=== PATIENT | female | born 2000 | race Caucasian/White ===

== ENCOUNTER 2020-03-01 13:52 | Emergency (ER) | payer MEDICAID, SELFPAY ==
[2020-03-01 13:58] VITALS: BP 131/78; PULSE 117; RESP 16; TEMP 36.4; O2SAT 99; BMI 25.4
--- NOTE | 2020-03-01 14:23 | ED_ITS ---
HPI - Female Genitourinary General: Chief complaint: Vaginal Bleeding Stated complaint: LOWER AB PAIN, VAGINAL BLEEDING Time Seen by Provider: 03/01/20 14:03 History of Present Illness: HPI Narrative: Patient is a well-appearing, tearful 20-year-old female seen for vaginal bleeding, passing vaginal clots, and abdominal pain which started this morning. She states that she has normal menstrual cycles, and that today's bleed was roughly 1 week early, and she does not remember missing a period. She complains of 7 of 10 pain in the suprapubic region which is worse with motion and palpation and better with rest. She also complains of epigastric and right upper quadrant tenderness which she states came on at the same time. She has never been before and has not taken a test. She relates a history of acute kidney injury requiring hosp italization 4 years ago. She has not had any specialty follow-up since that time but states she has had clear urine output. She denies fever, dysuria, chest pain, shortness of breath associated with her symptoms. Date of Last Menstrual Period: 02/04/20 Review of Systems General: Reports: 10 or more systems reviewed and unremarkable except in HPI and below [facility] ED Female Reproductive History: Date of last menstrual period: 02/04/20 Physical Exam Const: COMMON NORMALS: no acute distress, patient oriented x3 and alert HENMT: COMMON NORMALS: normocephalic and atraumatic HEAD & SCALP: no rmocephalic and atraumatic Eye: COMMON NORMALS: Equal, round and reactive pupils present, EOMs intact bilaterally and no scleral icterus PUPIL: Yes Equal, round and reactive pupils present Resp: COMMON NORMALS: normal respiratory effort and No retractions Cardio: COMMON NORMALS: regular rate, regular rhythm and No murmurs present (Cardio) RATE: regular rate RHYTHM: regular rhythm GI: COMMON NORMALS: Normal to inspection, nondistended, normoactive bowel sounds present and Soft to palpation; negative for non-tender PALPATION: Yes Soft to palpation and Yes Tenderness to palpation present (GI) Details: RUQ and other (Most tender in the suprapubic region and the bilateral adnexal region as well as mild tenderness to palpation of the epigastrium and right upper quadrant.) Neuro: COMMON NORMALS: patient oriented x3 SENSORIUM/ORIENTATION: Yes alert Skin: COMMON NORMALS: no rashes or lesions noted GENERAL SKIN EXAM: no rashes or lesions noted Course Vital Signs: Vital signs: Vital Signs Temperature 97.5 F L 03/01/20 13:58 Pulse Rate 104 H 03/01/20 17:05 Respiratory Rate 14 03/01/20 15:29 Blood Pressure 103/62 03/01/20 17:05 Pulse Oximetry 98 03/01/20 17:05 MDM - Female MDM Narrative: Medical decision making narrative: Patient remained hemodynamically stable throughout ED course. CBC, CMP, lipase, UA, hCG are all unremarkable. Vital signs are stable. Abdomen is soft and nonperitoneal. I suspect abnormal uterine bleeding versus ovarian cyst rupture. I offered her ultrasound, but cautioned her that it likely would not change her course. She will be discharged in stable and improved condition with instructions to use ibuprofen for pain and follow-up to primary care. She states that she has a primary care physician with whom she was to follow-up in [facility]. She knows she is welcome back in the emergency department should her symptoms get worse before outpatient follow-up. She was also offered follow-up to SOCIAL SERVICE TECHNICIAN, but she declined at this time. Lab Data: Labs: Lab Results 03/01/20 03/01/20 03/01/20 Range/Units 14:25 14:25 15:02 WBC 11.6 H (4.0-10.0) 10^3/ uL RBC 4.74 (4.1-5.3) 10^6/u L Hgb 13.2 (11.5-15.3) g/dL Hct 41.3 (37.0-47.0) % MCV 87.1 (81-99) fL MCH 27.8 L (28.0-34.0) pg MCHC 32.0 (30.0-36.0) g/dL RDW 12.9 (12.1-15.1) % Plt Count 336 (130-400) 10^3/c mm MPV 8.8 (7.4-10.4) fL Neut % (Auto) 77.7 % Lymph % (Auto) 15.7 % [place] % (Auto) 5.1 % Eos % (Auto) 0.8 % Baso % (Auto) 0.4 % Neut # (Auto) 9.02 H (1.8-7.7) 10^3/u L Lymph # (Auto) 1.8 (0.8-4.8) 10^3/u L [place] # (Auto) 0.6 (0.2-0.9) 10^3/u L Eos # (Auto) 0.1 (0.0-0.8) 10^3/u L Baso # (Auto) 0.1 (0.0-0.1) 10^3/u L Nucleated RBC % (a uto) 0 % Nucleated RBCs # 0.0 /100WBC Sodium (136-145) mmol/L Potassium (3.5-5.1) mmol/L Chloride (98-107) mmol/L Carbon Dioxide (22-29) mmol/L Anion Gap (5-19) BUN (6-20) mg/dL Creatinine (0.5-0.9) mg/dL GFR Calculation (90-130) mL/min Glucose (65-115) mg/dL Calculated Osmolal ity (285-295) mOsm/k g Calcium (8.5-10.5) mg/dL Total Bilirubin (0.15-1.2) mg/dL AST (0-32) U/L ALT (0-33) U/L Alkaline Phosphata se (35-105) IU/L Total Protein (6.6-8.7) g/dL Albumin (3.5-5.2) g/dL Globulin (1.3-4.6) g/dL Lipase (13-60) U/L HCG, Qual Negative (Negative) Urine Color Straw (Yellow) Urine Appearance Clear (CLEAR) Urine pH 7.0 (5-7) Ur Specific Gravit y 1.000 L (1.005-1.030) Urine Protein Neg (Negative) Urine Glucose (UA) Norm (Normal) Urine Ketones Negative (Negative) Urine Blood 2+ H (Negative) Urine Nitrate Negative (Negative) Urine Bilirubin Neg (Negative) Urine Urobilinogen Norm (Negative) mg/dL Ur Leukocyte Nancy ase Negative (Negative) Urine RBC 0-4 H (0-2) /hpf Urine WBC 0-4 H (0-5) /hpf Ur Squamous Epith Cells 0-4 H (0-5) /hpf Amorphous Sediment Not Reportable Urine Bacteria 1+ H (NONE) /hpf 03/01/20 Range/Units 15:02 WBC (4.0-10.0) 10^3/ uL RBC (4.1-5.3) 10^6/u L Hgb (11.5-15.3) g/dL Hct (37.0-47.0) % MCV (81-99) fL MCH (28.0-34.0) pg MCHC (30.0-36.0) g/dL RDW (12.1-15.1) % Plt Count (130-400) 10^3/c mm MPV (7.4-10.4) fL Neut % (Auto) % Lymph % (Auto) % [place] % (Auto) % Eos % (Auto) % Baso % (Auto) % Neut # (Auto) (1.8-7.7) 10^3/u L Lymph # (Auto) (0.8-4.8) 10^3/u L [place] # (Auto) (0.2-0.9) 10^3/u L Eos # (Auto) (0.0-0.8) 10^3/u L Baso # (Auto) (0.0-0.1) 10^3/u L Nucleated RBC % (a uto) % Nucleated RBCs # /100WBC Sodium 140 (136-145) mmol/L Potassium 4.2 (3.5-5.1) mmol/L Chloride 104 (98-107) mmol/L Carbon Dioxide 29 (22-29) mmol/L Anion Gap 11.2 (5-19) BUN 11 (6-20) mg/dL Creatinine 0.6 (0.5-0.9) mg/dL GFR Calculation 126.2 (90-130) mL/min Glucose 103 (65-115) mg/dL Calculated Osmolal ity 290 (285-295) mOsm/k g Calcium 9.2 (8.5-10.5) mg/dL Total Bilirubin 0.3 (0.15-1.2) mg/dL AST 14 (0-32) U/L ALT 12 (0-33) U/L Alkaline Phosphata se 60 (35-105) IU/L Total Protein 6.3 L (6.6-8.7) g/dL Albumin 4.0 (3.5-5.2) g/dL Globulin 2.3 (1.3-4.6) g/dL Lipase 19 (13-60) U/L HCG, Qual (Negative) Urine Color (Yellow) Urine Appearance (CLEAR) Urine pH (5-7) Ur Specific Gravit y (1.005-1.030) Urine Protein (Negative) Urine Glucose (UA) (Normal) Urine Ketones (Negative) Urine Blood (Negative) Urine Nitrate (Negative) Urine Bilirubin (Negative) Urine Urobilinogen (Negative) mg/dL Ur Leukocyte Nancy ase (Negative) Urine RBC (0-2) /hpf Urine WBC (0-5) /hpf Ur Squamous Epith Cells (0-5) /hpf Amorphous Sediment Urine Bacteria (NONE) /hpf Discharge Plan Discharge Patient Disposition: Home Clinical Impression: Vaginal bleeding, Pelvic pain Condition: Stable Prescriptions: No Action Hair,Nails and Skin Vitamin Tablet 1 tab PO DAILY@0800 RF: 0 Vitamin B-12 1 tab PO DAILY@0800 RF: 0 Discharge Orders: Discharge ED (Routine); Ordered 03/01/20 Ordered By: Joni Recinos Discharge Diet: Usual diet Discharge Activity: Resume usual activity Activity Restrictions/Additional Instructions: CBC, CMP, lipase, urinalysis were all normal today. test shows that you are not and did not have a miscarriage today. I suspect you had an ovarian cyst rupture which caused your pain. Please follow-up with your primary care physician in no your was welcome back in the emergency department if your symptoms get worse before he can be seen in the clinic. Coding Level of Care Code ED Emergency Worker for Melissa Fwd Exam Detailed
[2020-03-01 14:35] LABS: Add Urine Microscopic? YES; Bilirubin Urine Neg (Negative); Blood Urine 2+ (Negative); Glucose Urine UA Norm (Normal); HCG Qualitative Urine. Negative (Negative); Ketones Urine Negative (Negative); Leukocyte Esterase Urine Negative (Negative); Nitrate Urine Negative (Negative); Protein Urine Neg (Negative); Urine Appearance Clear (CLEAR); Urine Color Straw (Yellow); Urobilinogen Urine Norm (Negative)
[2020-03-01 15:15] LABS: Basophils # 0.1 10^3/uL (0.0-0.1); Basophils % 0.4 %; Eosinophils # 0.1 10^3/uL (0.0-0.8); Eosinophils % 0.8 %; Hematocrit 41.3 % (37.0-47.0); Hemoglobin 13.2 g/dL (11.5-15.3); Lymphocytes # 1.8 10^3/uL (0.8-4.8); Lymphocytes % 15.7 %; Mean Corpuscular Hemoglobin 27.8 pg (28.0-34.0); Mean Corpuscular Volume 87.1 fL (81-99); Mean Platelet Volume 8.8 fL (7.4-10.4); Monocytes # 0.6 10^3/uL (0.2-0.9); Monocytes % 5.1 %; Neutrophils # 9.02 10^3/uL (1.8-7.7); Neutrophils % 77.7 %; Nucleated Red Blood Cells % 0 %; Platelet Count 336 10^3/cmm (130-400); Red Blood Count 4.74 10^6/uL (4.1-5.3); Red Cell Distribution Width 12.9 % (12.1-15.1); White Blood Count 11.6 10^3/uL (4.0-10.0)
[2020-03-01 15:16] LABS: Bacteria Urine 1+ /hpf; RBC Urine 0-4 /hpf (0-2); Squamous Epithelial Cell Urine 0-4 /hpf (0-5); WBC Urine 0-4 /hpf (0-5)
[2020-03-01 15:28] LABS: Alanine Aminotransferase 12 U/L (0-33); Alkaline Phosphatase 60 IU/L (35-105); Anion Gap 11.2 (5-19); Aspartate Amino Transferase 14 U/L (0-32); Blood Urea Nitrogen 11 mg/dL (6-20); Calcium 9.2 mg/dL (8.5-10.5); Carbon Dioxide 29 mmol/L (22-29); Chloride 104 mmol/L (98-107); Globulin 2.3 g/dL (1.3-4.6); Glomerular Filtration Rate 126.2 mL/min (90-130); Glucose 103 mg/dL (65-115); Lipase 19 U/L (13-60); Osmolality Calculated 290 mOsm/kg (285-295); Potassium 4.2 mmol/L (3.5-5.1); Sodium 140 mmol/L (136-145); Total Bilirubin 0.3 mg/dL (0.15-1.2); Total Protein 6.3 g/dL (6.6-8.7)
[2020-03-01 15:29] VITALS: BP 102/60; PULSE 87; RESP 14; O2SAT 97
[2020-03-01 17:05] VITALS: BP 103/62; PULSE 104; O2SAT 98
== END 2020-03-01 17:05 | disposition home or self-care (01) ==
PROVIDERS: Emergency Provider Student in an Organized Health Care Education/Training Program
DX: N93.9 Abnormal uterine and vaginal bleeding, unspecified (principal); R10.2 Pelvic and perineal pain
CPT/HCPCS: 12345; 80053; 81001; 81025; 83690; 85025; 99282

== ENCOUNTER → 2020-04-13 17:13 | Outpatient (BNVA) | payer OTHER, SELFPAY | PROVIDERS: Visit Provider Nurse Practitioner | DX: Z20.828 Contact with and (suspected) exposure to other viral communicable diseases (principal) | CPT/HCPCS: 87635 ==

== ENCOUNTER 2020-04-20 16:34 | Emergency (ER) | payer MEDICAID, SELFPAY ==
[2020-04-20 16:46] VITALS: BP 129/81; PULSE 82; RESP 16; TEMP 36.6; O2SAT 100; BMI 24.1
[2020-04-20 16:47] VITALS: BP 129/57; PULSE 61; RESP 16; O2SAT 99
--- NOTE | 2020-04-20 16:51 | W.ED.NAVMDI ---
HPI - Nausea/Vomiting/Diarrhea General: Chief complaint: Nausea/Vomiting/Diarrhea Stated complaint: , vomiting to point of bleeding Time Seen by Provider: 04/20/20 16:49 History of Present Illness: HPI Narrative: 20-year-old female comes in complaining of nausea vomiting off and on for the last week not able to keep any fluids down. Patient states she is although she is not sure how far along she is. She had a negative test here in mid February. She is on not certain how far along she is she has established with Dr. Amanda but if not done an ultrasound yet. She denies any vaginal bleeding she has very sore throat running quite a bit tiny specks of blood with vomitus recently. She has tried [employer] and B12 vitamin (they were sold out of B6) with no relief of symptoms. She denies any dysuria urgency or frequency vaginal bleeding or discharge. MD elicited complaint: nausea and vomiting Pertinent past history: other () Onset (ago): day(s) Description of vomiting: food contents and watery Associated nausea: Yes Associated abdominal pain: Yes (Related to repeated dry heaving) Location of pain: Diffuse Severity: mild Quality: cramping Exacerbating factors: none Relieving factors: none Associated symtoms: Reports fatigue, anorexia, malaise and nausea; Denies altered mental status, anxiety, bloating, change in vision, chest pain, cough, diaphoresis, decreased urine output, dizziness, dysuria, epistaxis, fecal incontinence, fevers/chills, headache(s), myalgias, numbness, palpitations, rash, short of breath, syncope, tenesmus, tinnitus or weakness Review of Systems Const: Reports: fatigue and malaise; Denies: diaphoresis Eyes: Denies: change in vision ENMT: Denies: tinnitus or epistaxis Card: Denies: chest pain, palpitations or syncope Resp: Denies: dyspnea, productive cough or non-productive cough GI: Reports: nausea; Denies: bloating or fecal incontinence : Denies: dysuria Skin/Breast: Denies: rash or pruritus Neuro: Denies: headache(s) or dizziness Psych: Denies: anxiety [facility] ED Female Reproductive History: Date of last menstrual period: 02/23/20 Physical Exam Const: COMMON NORMALS: no acute distress EXAM LIMITATIONS: no altered mental status GENERAL APPEARANCE: cooperative and comfortable ORIENTATION/CONSCIOUSNESS: Yes awake, Yes oriented to person, Yes oriented to place and Yes oriented to time HENMT: COMMON NORMALS: normocephalic, atraumatic, external ears normal, EAC's normal, TM's normal bilaterally and Normal nasal mucous membranes and turbinates present HEAD & SCALP: normocephalic and atraumatic NOSE: Normal nasal mucous membranes and turbinates present EXTERNAL EAR: Yes external ears normal EXTERNAL AUDITORY CANAL: EAC's normal TYMPANIC MEMBRANE: TM's normal bilaterally Eye: COMMON NORMALS: Equal, round and reactive pupils present, EOMs intact bilaterally, conjunctivae normal and no scleral icterus CONJUNCTIVA: Yes conjunctivae normal PUPIL: Yes Equal, round and reactive pupils present Neck/C-Spine: COMMON NORMALS: no JVD Resp: COMMON NORMALS: normal respiratory effort, No retractions, No use of accessory muscles and clear to auscultation bilaterally AUSCULTATION: clear to auscultation bilaterally Cardio: COMMON NORMALS: no JVD, regular rate, regular rhythm and No murmurs present (Cardio) RATE: regular rate RHYTHM: regular rhythm GI: COMMON NORMALS: Soft to palpation and No hepatosplenomegaly present AUSCULTATION: Yes normoactive bowel sounds PALPATION: Yes Soft to palpation, No Tenderness to palpation present (GI), No Guarding due to palpation present (GI) and Yes No hepatosplenomegaly present Extremity: COMMON NORMALS: normal to inspection, capillary refill normal, no clubbing, cyanosis or edema, no calf tenderness and no pedal edema Neuro: SENSORIUM/ORIENTATION: Yes oriented to person, Yes oriented to place and Yes oriented to time Skin: COMMON NORMALS: no rashes or lesions noted GENERAL SKIN EXAM: no rashes or lesions noted Course Vital Signs: Vital signs: Vital Signs Temperature 97.9 F 04/20/20 16:46 Pulse Rate 78 04/20/20 20:02 Respiratory Rate 18 04/20/20 20:02 Blood Pressure 125/65 04/20/20 20:02 Pulse Oximetry 96 04/20/20 20:02 MDM - Nausea/Vomiting/Diarrhea MDM Narrative: Medical decision making narrative: Patient feeling better after fluids and antiemetics. She has a mild bladder infection we will start her on Macrobid gave her both promethazine suppositories and tablets clear good diet next 24 hours if not improving follow-up with primary care if worsens return to the emergency room Lab Data: Labs: Lab Results 04/20/20 04/20/20 04/20/20 Range/Units 17:09 17:09 17:24 WBC 11.2 H (4.0-10.0) 10^3/ uL RBC 4.59 (4.1-5.3) 10^6/u L Hgb 12.9 (11.5-15.3) g/dL Hct 39.8 (37.0-47.0) % MCV 86.7 (81-99) fL MCH 28.1 (28.0-34.0) pg MCHC 32.4 (30.0-36.0) g/dL RDW 12.5 (12.1-15.1) % Plt Count 291 (130-400) 10^3/c mm MPV 8.9 (7.4-10.4) fL Neut % (Auto) 77.7 % Lymph % (Auto) 16.1 % [place] % (Auto) 5.2 % Eos % (Auto) 0.3 % Baso % (Auto) 0.4 % Neut # (Auto) 8.67 H (1.8-7.7) 10^3/u L Lymph # (Auto) 1.8 (0.8-4.8) 10^3/u L [place] # (Auto) 0.6 (0.2-0.9) 10^3/u L Eos # (Auto) 0.0 (0.0-0.8) 10^3/u L Baso # (Auto) 0.0 (0.0-0.1) 10^3/u L Nucleated RBC % (a uto) 0 % Nucleated RBCs # 0.0 /100WBC Sodium 136 (136-145) mmol/L Potassium 3.7 (3.5-5.1) mmol/L Chloride 100 (98-107) mmol/L Carbon Dioxide 25 (22-29) mmol/L Anion Gap 14.7 (5-19) BUN 8 (6-20) mg/dL Creatinine 0.5 (0.5-0.9) mg/dL GFR Calculation 155.7 H (90-130) mL/min Glucose 78 (65-115) mg/dL Calculated Osmolal ity 279 L (285-295) mOsm/k g Calcium 9.5 (8.5-10.5) mg/dL Magnesium 2.0 (1.7-2.3) mg/dL Total Bilirubin 0.4 (0.15-1.2) mg/dL AST 12 (0-32) U/L ALT 10 (0-33) U/L Alkaline Phosphata se 49 (35-105) IU/L Total Protein 6.7 (6.6-8.7) g/dL Albumin 4.3 (3.5-5.2) g/dL Globulin 2.4 (1.3-4.6) g/dL Lipase 12 L (13-60) U/L Urine Color Yellow (Yellow) Urine Appearance Sl hazy (CLEAR) Urine pH 7 (5-7) Ur Specific Gravit y 1.015 (1.005-1.030) Urine Protein Neg (Negative) Urine Glucose (UA) Norm (Normal) Urine Ketones 3+ H (Negative) Urine Blood 2+ H (Negative) Urine Nitrate Negative (Negative) Urine Bilirubin 1+ H (Negative) Urine Urobilinogen 1 H (Negative) mg/dL Ur Leukocyte Nancy ase Negative (Negative) Urine RBC 15-25 H (0-2) /hpf Urine WBC 0-4 H (0-5) /hpf Ur Squamous Epith Cells 0-4 H (0-5) /hpf Amorphous Sediment Not Reportable Urine Bacteria 2+ H (NONE) /hpf Urine Mucus 4+ /hpf Discharge Plan Discharge Patient Disposition: Home Clinical Impression: Hyperemesis gravidarum, Cystitis Condition: Stable Prescriptions: New promethazine 25 mg tablet 25 mg PO Q6H PRN (Reason: nausea and vomiting) Qty: 20 RF: 0 promethazine 12.5 mg suppository 12.5 mg [place] Q6H PRN (Reason: nausea and vomiting) Qty: 12 RF: 0 Macrobid 100 mg capsule 100 mg PO Q12H 7 Days Qty: 14 RF: 0 No Action Hair,Nails and Skin Vitamin Tablet 1 tab PO DAILY@0800 RF: 0 Vitamin B-12 1 tab PO DAILY@0800 RF: 0 Discharge Orders: Discharge ED (Routine); Ordered 04/20/20 Ordered By: Oswaldo Muniz Discharge Diet: Clear Liquid Discharge Activity: Increase activity as tolerated Activity Restrictions/Additional Instructions: Follow-up with your OB as needed return if has further problems. Take the p.o. promethazine if you have persistent nausea and vomiting if you cannot keep the p.o. promethazine down to use the suppositories. Coding Level of Care Code ED Surveyor Helper Rod for Melissa Fwd Exam Comprehensive
[2020-04-20 17:17] VITALS: BP 109/54; PULSE 71; RESP 15; O2SAT 97
[2020-04-20 17:20] LABS: Basophils % 0.4 %; Eosinophils % 0.3 %; Hematocrit 39.8 % (37.0-47.0); Hemoglobin 12.9 g/dL (11.5-15.3); Lymphocytes # 1.8 10^3/uL (0.8-4.8); Lymphocytes % 16.1 %; Mean Corpuscular HGB Conc 32.4 g/dL (30.0-36.0); Mean Corpuscular Hemoglobin 28.1 pg (28.0-34.0); Mean Corpuscular Volume 86.7 fL (81-99); Mean Platelet Volume 8.9 fL (7.4-10.4); Monocytes # 0.6 10^3/uL (0.2-0.9); Monocytes % 5.2 %; Neutrophils # 8.67 10^3/uL (1.8-7.7); Neutrophils % 77.7 %; Nucleated Red Blood Cells % 0 %; Platelet Count 291 10^3/cmm (130-400); Red Blood Count 4.59 10^6/uL (4.1-5.3); Red Cell Distribution Width 12.5 % (12.1-15.1); White Blood Count 11.2 10^3/uL (4.0-10.0)
[2020-04-20] MEDS: promethazine 25 mg/mL SDV 1 mL IM (17:28)
[2020-04-20] MEDS: sodium chloride 0.9% 1,000 ML 999 ML IV ×2 (17:28→18:30)
[2020-04-20 17:45] LABS: Alanine Aminotransferase 10 U/L (0-33); Albumin Level 4.3 g/dL (3.5-5.2); Alkaline Phosphatase 49 IU/L (35-105); Anion Gap 14.7 (5-19); Aspartate Amino Transferase 12 U/L (0-32); Blood Urea Nitrogen 8 mg/dL (6-20); Calcium 9.5 mg/dL (8.5-10.5); Carbon Dioxide 25 mmol/L (22-29); Chloride 100 mmol/L (98-107); Creatinine Clr Calc Pharmacy 170.0118; Globulin 2.4 g/dL (1.3-4.6); Glomerular Filtration Rate 155.7 mL/min (90-130); Glucose 78 mg/dL (65-115); Lipase 12 U/L (13-60); Osmolality Calculated 279 mOsm/kg (285-295); Potassium 3.7 mmol/L (3.5-5.1); Sodium 136 mmol/L (136-145); Total Bilirubin 0.4 mg/dL (0.15-1.2); Total Protein 6.7 g/dL (6.6-8.7)
[2020-04-20 18:04] VITALS: BP 116/59; PULSE 73; RESP 18; O2SAT 98
[2020-04-20 18:10] LABS: Bilirubin Urine 1+ (Negative); Blood Urine 2+ (Negative); Glucose Urine UA Norm (Normal); Ketones Urine 3+ (Negative); Nitrate Urine Negative (Negative); Protein Urine Neg (Negative); Specific Gravity, Urine 1.015 (1.005-1.030); Urine Appearance SL Hazy (CLEAR); Urine Color Yellow (Yellow); Urobilinogen Urine 1 mg/dL (Negative); pH Urine 7 (5-7)
[2020-04-20 18:11] LABS: Add Urine Microscopic? YES; Leukocyte Esterase Urine Negative (Negative)
[2020-04-20 18:12] LABS: Bacteria Urine 2+ /hpf; Mucus Urine 4+ /hpf; RBC Urine 15-25 /hpf (0-2); Squamous Epithelial Cell Urine 0-4 /hpf (0-5); WBC Urine 0-4 /hpf (0-5)
[2020-04-20 18:13] LABS: Add Urine Culture? Yes
[2020-04-20 20:02] VITALS: BP 125/65; PULSE 78; RESP 18; O2SAT 96
== END 2020-04-20 20:04 | disposition home or self-care (01) ==
PROVIDERS: Emergency Provider Family Medicine
DX: O21.0 Mild hyperemesis gravidarum (principal); O23.10 Infections of bladder in pregnancy, unspecified trimester; Z3A.00 Weeks of gestation of pregnancy not specified
CPT/HCPCS: 12345; 80053; 81001; 83690; 83735; 85025; 87086; 96360; 96361; 96372; 99283; J2550; J7030

== ENCOUNTER 2020-06-15 15:35 | Emergency (ER) | payer MEDICAID, SELFPAY ==
[2020-06-15 15:38] VITALS: BP 101/66; PULSE 83; RESP 18; TEMP 36.3; O2SAT 99; BMI 25.4
--- NOTE | 2020-06-15 16:03 | ED_ITS ---
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 She reports 24-hour onset of nausea vomiting diarrhea. She reports attempts to take Tylenol for her headache which started at the onset of symptoms, threw it up. She reports heartburn symptoms, did not know what to take [id number]. She states took an [id number] medication for her nausea but did not help. She denies fever chills, denies pain with urination. She states feels weak and dizzy. She denies lower abdominal pain denies vaginal discharge bleeding or vaginal pain. She reports heartburn discomfort located to the left upper quadrant. She reports diarrhea stopped 3 hours ago. She denies hematemesis or hematochezia. She reports has follow-up with Dr. Amanda on Thursday, she does not know her last menstrual period/cycle, she states ultrasound confirms she was 14 weeks IUP. Previous medical records show last menstrual period 2019. MD elicited complaint: nausea, vomiting and diarrhea Pertinent past history: anorexia Onset (ago): day(s) (1) Description of vomiting: watery Description of diarrhea: watery Associated nausea: Yes Associated abdominal pain: No Location of pain: LUQ (heartburn) Exacerbating factors: none Relieving factors: none Associated symtoms: Reports dizziness, fatigue, headache(s), nausea and we akness; Denies anxiety, chest pain, dysuria, malaise or palpitations Treatment prior to arrival: other OTC medicine Review of Systems General: Reports: 10 or more systems reviewed and unremarkable except in HPI and below Const: Reports: fatigue; Denies: fever(s), chills, body aches or malaise Eyes: Denies: blurry vision, eye discomfort or eye redness ENMT: Denies: throat pain, dental pain or disequilibrium Card: Denies: chest pain, palpitations or irregular heart rhythm Resp: Denies: dyspnea, productive cough, non-productive cough or wheezing GI: Reports: nausea, vomiting, heartburn and diarrhea; Denies: abdominal pain, hematemesis, constipation, GI cramping or pain on defecation : Denies: difficulty voiding, dysuria, urinary urgency or urinary hesitancy Musc: Denies: neck pain, back pain, joint pain, joint warmth, joint stiffness or muscle cramps Skin/Breast: Denies: rash or pruritus Neuro: Reports: headache(s) and dizziness Psych: Denies: anxiety, depression or sleeping more Alon/Lymph: Denies: easy bruising [facility] ED Female Reproductive History: Date of last menstrual period: 02/23/20 Physical Exam Const: COMMON NORMALS: no acute distress, patient oriented x3, healthy appearing, alert and well nourished GENERAL APPEARANCE: cooperative, comfortable, well kempt, well developed, anxious and well hydrated NUTRITIONAL APPEARANCE: thin ORIENTATION/CONSCIOUSNESS: Yes awake, Yes oriented to person, Yes oriented to place and Yes oriented to time HENMT: COMMON NORMALS: normocephalic, atraumatic, Normal external nose present and moist oral mucous membranes HEAD & SCALP: normocephalic and atraumatic FACE & SINUS: normal facial exam, sinuses nontender and face symmetric NOSE: Normal external nose present MOUTH: Normal oral and palatal mucosa present, lip normal and tongue normal THROAT: posterior oropharynx normal and uvula midline Eye: COMMON NORMALS: Equal, round and reactive pupils present and EOMs intact bilaterally GENERAL EYE: appearance normal, both eyes and all related structures PUPIL: Yes Equal, round and reactive pupils present Neck/C-Spine: COMMON NORMALS: full ROM and no lymphadenopathy GENERAL: Yes normal visual inspection and Yes trachea midline CERVICAL SPINE: Yes cervical ROM normal Lymph: LYMPHATIC: no lymphadenopathy noted Chest: COMMONS NORMALS: normal inspection of the chest and normal palpation of entire chest wall Resp: COMMON NORMALS: normal respiratory effort, No retractions, No use of accessory muscles and clear to auscultation bilaterally EFFORT & INSPECTION: Yes able to speak in complete sentences, No abnormal respiratory pattern, No labored and No audible wheezes AUSCULTATION: clear to auscultation bilaterally Cardio: COMMON NORMALS: regular rate, regular rhythm, S1 normal heart sound present, S2 normal heart sound present and Peripheral pulses 2+ throughout RATE: regular rate RHYTHM: regular rhythm HEART SOUNDS: S1 normal heart sound present and S2 normal heart sound present PERIPHERAL PULSES: Peripheral pulses 2+ throughout GI: COMMON NORMALS: Normal to inspection, nondistended, normoactive bowel sounds present, Soft to palpation, non-tender and No hepatosplenomegaly present INSPECTION: Yes normal to inspection, No abdominal wall ecchymosis, No abdominal distension, No central obesity, No visible herniation, No Fluid wave present, No Laceration(s) present (GI) and Yes gravid abdomen AUSCULTATION: Yes normoactive bowel sounds PALPATION: Yes Soft to palpation, No Tenderness to palpation present (GI), No Guarding due to palpation present (GI), Yes No hepatosplenomegaly present, No Hernia present and No Abdominal wall crepitus present PERCUSSION: no fluid wave RECTAL EXAM: no laceration(s) noted : COMMON NORMALS: Yes no CVA tenderness BLADDER/KIDNEY EXAM: Yes no CVA tenderness EXTERNAL FEMALE EXAM: No Hernia present AMNIOTIC FLUID: other (FHT 166 strong and regular) Back/Pelvis: COMMON NORMALS: no CVA tenderness, thoracic and lumbar spine normal to inspection, no thoracic nor lumbar tenderness, thoraco-lumbar ROM normal and straight leg raise negative bilaterally Extremity: COMMON NORMALS: normal to inspection, full ROM, capillary refill normal, no clubbing, cyanosis or edema and no pedal edema GENERAL: Yes normal exam except as noted Neuro: COMMON NORMALS: patient oriented x3 and no focal motor deficits SENSORIUM/ORIENTATION: Yes alert, Yes oriented to person, Yes oriented to place and Yes oriented to time Psych: COMMON NORMALS: mental status grossly normal, Normal thought process present and cooperative APPEARANCE: Yes well kempt ACTIVITY/MOTOR BEHAVIOR: Yes appropriate eye contact THOUGHT PROCESS: Normal thought process present Skin: COMMON NORMALS: no rashes or lesions noted and turgor normal GENERAL SKIN EXAM: no rashes or lesions noted and turgor normal Course Vital Signs: Vital signs: Vital Signs Temperature 97.3 F L 06/15/20 15:38 Pulse Rate 79 06/15/20 17:43 Respiratory Rate 18 06/15/20 17:43 Blood Pressure 103/67 06/15/20 17:43 Pulse Oximetry 99 06/15/20 17:43 MDM - Nausea/Vomiting/Diarrhea MDM Narrative: Medical decision making narrative: 20-year-old female patient presents to the emergency department with acute dehydration due to nausea vomiting diarrhea x24 hours. She is 14 weeks IUP, heart tones are strong and regular. heart tones ranged 165-170. Serology findings negative for acute abnormalities. Urinalysis revealed 2+ blood, trace bacteria, she was placed on Omnicef here in the ED and improved with prescription of Macrobid x5 days for treatment of possible UTI, urine cultures pending. Quantitative hCG appropriate for gestational age. Lipase was negative. She did not exhibit nausea vomiting here in the ED, diarrhea had resolved approximately 2 to 3 hours prior to arrival. She was placed on Pepcid due to complaints of heartburn. She was able to tolerate p.o. fluids and ice chips during her stay and had requested to go home after receiving 1 L of normal saline. She reports feeling much better and has an appointment with Dr. Amanda for OB follow-up Thursday. She is advised to continue follow-up. Lab Data: Labs: Lab Results 06/15/20 06/15/20 06/15/20 Range/Units 16:25 16:28 16:28 WBC 9.9 (4.0-10.0) 10^3/ uL RBC 4.45 (4.1-5.3) 10^6/u L Hgb 12.5 (11.5-15.3) g/dL Hct 38.8 (37.0-47.0) % MCV 87.2 (81-99) fL MCH 28.1 (28.0-34.0) pg MCHC 32.2 (30.0-36.0) g/dL RDW 12.4 (12.1-15.1) % Plt Count 258 (130-400) 10^3/c mm MPV 8.9 (7.4-10.4) fL Neut % (Auto) 78.4 % Lymph % (Auto) 15.9 % Real % (Auto) 4.8 % Eos % (Auto) 0.2 % Baso % (Auto) 0.3 % Neut # (Auto) 7.76 H (1.8-7.7) 10^3/u L Lymph # (Auto) 1.6 (0.8-4.8) 10^3/u L Real # (Auto) 0.5 (0.2-0.9) 10^3/u L Eos # (Auto) 0.0 (0.0-0.8) 10^3/u L Baso # (Auto) 0.0 (0.0-0.1) 10^3/u L Nucleated RBC % (a uto) 0 % Nucleated RBCs # 0.0 /100WBC Sodium 135 L (136-145) mmol/L Potassium 3.6 (3.5-5.1) mmol/L Chloride 99 (98-107) mmol/L Carbon Dioxide 26 (22-29) mmol/L Anion Gap 13.6 (5-19) BUN 8 (6-20) mg/dL Creatinine 0.5 (0.5-0.9) mg/dL GFR Calculation 155.7 H (90-130) mL/min Glucose 101 (65-115) mg/dL Calculated Osmolal ity 278 L (285-295) mOsm/k g Calcium 8.7 (8.5-10.5) mg/dL Total Bilirubin 0.2 (0.15-1.2) mg/dL AST 11 (0-32) U/L ALT 8 (0-33) U/L Alkaline Phosphata se 46 (35-105) IU/L Total Protein 6.3 L (6.6-8.7) g/dL Albumin 3.9 (3.5-5.2) g/dL Globulin 2.4 (1.3-4.6) g/dL Lipase 15 (13-60) U/L Ser , [place] [address].00 mIU/mL Urine Color Yellow (Yellow) Urine Appearance Sl hazy (CLEAR) Urine pH 6.5 (5-7) Ur Specific Gravit y 1.020 (1.005-1.030) Urine Protein Neg (Negative) Urine Glucose (UA) Norm (Normal) Urine Ketones 2+ H (Negative) Urine Blood 2+ H (Negative) Urine Nitrate Negative (Negative) Urine Bilirubin 1+ H (Negative) Urine Urobilinogen 1 H (Negative) mg/dL Ur Leukocyte Nancy ase Negative (Negative) Urine RBC 0-4 H (0-2) /hpf Urine WBC None (0-5) /hpf Ur Squamous Epith Cells 5-10 H (0-5) /hpf Amorphous Sediment 2+ /hpf Urine Bacteria Trace (NONE) /hpf Urine Mucus Trace /hpf Discharge Plan Discharge Patient Disposition: Home Clinical Impression: Gastroenteritis, Acute nausea with nonbilious vomiting, Dehydration UTI (urinary tract infection) Qualifiers: Urinary tract infection type: acute cystitis Hematuria presence: with hematuria Qualified Code(s): N30.01 - Acute cystitis with hematuria Condition: Stable Prescriptions: New promethazine 25 mg tablet 12.5 mg PO Q6H PRN (Reason: nausea and vomiting) Qty: 14 RF: 0 Pepcid 20 mg tablet 20 mg PO BID Qty: 20 RF: 0 Macrobid 100 mg capsule 100 mg PO BID 5 Days Qty: 10 RF: 0 No Action Tylenol 325 mg Tablet 325 - 650 mg PO Q4H PRN (Reason: Pain) RF: 0 Emetrol Solution See Rx Instructions .ROUTE .COMPLEX RF: 0 1 tab PO DAILY RF: 0 Vitamin B-6 1 tab PO DAILY RF: 0 Discharge Orders: Discharge ED (Routine); Ordered 06/15/20 Ordered By: Zully Arevalo Discharge Diet: Advance as tolerated and Clear Liquid Discharge Activity: Limit activity as instructed Patient Instructions: Urinary Tract Infection in Women (ED), Diet for Ulcers and Gastritis (ED), Acute Nausea and Vomiting (ED), Opioid Safety Activity Restrictions/Additional Instructions: Push fluids to avoid dehydration Return to the emergency department if you develop vaginal bleeding, lower abd ominal pain or other concerning symptoms Clear liquid diet x12 hours then advance as tolerated, avoid fried greasy fatty spicy foods until follow-up with your primary care/OB on Thursday If you develop fever chills or other concerning symptoms, return to the emergency department. take Macrobid until all gone, even if better Coding Level of Care Code ED Repairer Shoe Sticks for Melissa Fwd Exam Comprehensive
[2020-06-15 16:35] LABS: Basophils % 0.3 %; Eosinophils % 0.2 %; Hematocrit 38.8 % (37.0-47.0); Hemoglobin 12.5 g/dL (11.5-15.3); Lymphocytes # 1.6 10^3/uL (0.8-4.8); Lymphocytes % 15.9 %; Mean Corpuscular HGB Conc 32.2 g/dL (30.0-36.0); Mean Corpuscular Hemoglobin 28.1 pg (28.0-34.0); Mean Corpuscular Volume 87.2 fL (81-99); Mean Platelet Volume 8.9 fL (7.4-10.4); Monocytes # 0.5 10^3/uL (0.2-0.9); Monocytes % 4.8 %; Neutrophils # 7.76 10^3/uL (1.8-7.7); Neutrophils % 78.4 %; Nucleated Red Blood Cells % 0 %; Platelet Count 258 10^3/cmm (130-400); Red Blood Count 4.45 10^6/uL (4.1-5.3); Red Cell Distribution Width 12.4 % (12.1-15.1); White Blood Count 9.9 10^3/uL (4.0-10.0)
[2020-06-15] MEDS: famotidine 20 mg Tablet PO (16:36)
[2020-06-15] MEDS: sodium chloride 0.9% 500 ML IV (16:36)
[2020-06-15] MEDS: metoclopramide 5 mg/mL SDV 2 mL 10 MG IVP (16:36)
[2020-06-15 16:46] LABS: Add Urine Microscopic? YES; Bilirubin Urine 1+ (Negative); Blood Urine 2+ (Negative); Glucose Urine UA Norm (Normal); Ketones Urine 2+ (Negative); Leukocyte Esterase Urine Negative (Negative); Nitrate Urine Negative (Negative); Protein Urine Neg (Negative); Urine Appearance SL Hazy (CLEAR); Urine Color Yellow (Yellow); Urobilinogen Urine 1 mg/dL (Negative); pH Urine 6.5 (5-7)
[2020-06-15 16:55] LABS: RBC Urine 0-4 /hpf (0-2)
[2020-06-15 16:56] LABS: Add Urine Culture? No; Amorphous Sediment Urine 2+ /hpf; Bacteria Urine TRACE /hpf; Mucus Urine TRACE /hpf
[2020-06-15 17:16] LABS: Alanine Aminotransferase 8 U/L (0-33); Albumin Level 3.9 g/dL (3.5-5.2); Alkaline Phosphatase 46 IU/L (35-105); Anion Gap 13.6 (5-19); Aspartate Amino Transferase 11 U/L (0-32); Blood Urea Nitrogen 8 mg/dL (6-20); Calcium 8.7 mg/dL (8.5-10.5); Carbon Dioxide 26 mmol/L (22-29); Chloride 99 mmol/L (98-107); Globulin 2.4 g/dL (1.3-4.6); Glomerular Filtration Rate 155.7 mL/min (90-130); Glucose 101 mg/dL (65-115); Lipase 15 U/L (13-60); Osmolality Calculated 278 mOsm/kg (285-295); Potassium 3.6 mmol/L (3.5-5.1); Sodium 135 mmol/L (136-145); Total Bilirubin 0.2 mg/dL (0.15-1.2); Total Protein 6.3 g/dL (6.6-8.7)
[2020-06-15] MEDS: cefdinir 300 MG CAPSULE PO (17:29)
[2020-06-15] MEDS: acetaminophen 325 mg Tablet 650 MG PO (17:30)
[2020-06-15 17:43] VITALS: BP 103/67; PULSE 79; RESP 18; O2SAT 99
== END 2020-06-15 17:45 | disposition home or self-care (01) ==
PROVIDERS: Emergency Provider Nurse Practitioner Family
DX: O26.892 Other specified pregnancy related conditions, second trimester (principal); K52.9 Noninfective gastroenteritis and colitis, unspecified; O23.12 Infections of bladder in pregnancy, second trimester; E86.0 Dehydration; Z3A.14 14 weeks gestation of pregnancy
CPT/HCPCS: 36415; 80053; 81001; 83690; 84702; 85025; 96361; 96374; 99284; J2765; J7040

== ENCOUNTER → 2020-09-03 12:53 | Outpatient (BNVA) | payer MEDICAID, SELFPAY | PROVIDERS: PCP Family Medicine; Visit Provider Nurse Practitioner | DX: R05 Cough (principal) | CPT/HCPCS: 87635 ==

== ENCOUNTER 2020-09-27 15:53 | Inpatient (IN) | payer MEDICAID, SELFPAY ==
[2020-09-27] VITALS (160 sets, daily range): BP systolic 90–124; BP diastolic 51–70; PULSE 77–136; RESP 16; TEMP 36.6; O2SAT 91–100; BMI 29.3
[2020-09-27 12:17] LABS: Nitrazine Paper, PH Negative
[2020-09-27] MEDS: terbutaline 1 mg/mL INJ 0.25 MG SUBCUT ×2 (12:57→14:19)
[2020-09-27 12:59] LABS: Urine Appearance Clear (CLEAR); Urine Color Straw (Yellow); pH Urine 7 (5-7)
[2020-09-27 13:00] LABS: Bilirubin Urine Neg (Negative); Blood Urine Neg (Negative); Glucose Urine UA Norm (Normal); Ketones Urine Negative (Negative); Leukocyte Esterase Urine Negative (Negative); Nitrate Urine Negative (Negative); Protein Urine Neg (Negative); Squamous Epithelial Cell Urine RARE /hpf (0-5); Urobilinogen Urine Norm (Negative)
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
--- NOTE | 2020-09-27 14:51 | PC.NURSE ---
Call placed to ultrasound at this time. Jessica states order was received and they would be up as soon as someone was available.
[2020-09-27] MEDS: dextrose 5%-lactated ringers 1,000 ML 75 ML IV (16:45)
[2020-09-27] MEDS: magnesium sulfate premix 4 GM/100 ML PREMIX IV (16:45)
[2020-09-27] MEDS: betamethasone susp 6 mg/mL 5 mL 12 MG IM (16:47)
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
[2020-09-27] MEDS: magnesium sulfate premix 20 GM/500 ML BAG IV (17:23)
[2020-09-27 18:14] LABS: Basophils % 0.2 %; Eosinophils % 0.3 %; Hematocrit 32.9 % (37.0-47.0); Hemoglobin 10.3 g/dL (11.5-15.3); Lymphocytes # 1.9 10^3/uL (0.8-4.8); Lymphocytes % 13.4 %; Mean Corpuscular HGB Conc 31.3 g/dL (30.0-36.0); Mean Corpuscular Hemoglobin 28.1 pg (28.0-34.0); Mean Corpuscular Volume 89.6 fL (81-99); Mean Platelet Volume 8.8 fL (7.4-10.4); Monocytes # 0.7 10^3/uL (0.2-0.9); Neutrophils # 11.27 10^3/uL (1.8-7.7); Nucleated Red Blood Cells % 0 %; Platelet Count 250 10^3/cmm (130-400); Red Blood Count 3.67 10^6/uL (4.1-5.3); Red Cell Distribution Width 12.7 % (12.1-15.1); White Blood Count 14.1 10^3/uL (4.0-10.0)
[2020-09-27] MEDS: hyDROXYzine 25 mg Capsule 50 MG PO (18:16)
[2020-09-28] VITALS (166 sets, daily range): BP systolic 93–131; BP diastolic 54–72; PULSE 90–123; RESP 16; TEMP 36.4–36.6; O2SAT 89–100
[2020-09-28 01:23] LABS: Amphetamines Screen Urine Negative (Negative); Barbiturates Screen Urine Negative (Negative); Benzodiazepines Screen Urine Negative (Negative); Cocaine Screen Urine Negative (Negative); Opiate Screen Urine Negative (Negative); PCP Screen Urine Negative (Negative); THC Screen Urine Positive (Negative)
[2020-09-28] MEDS: magnesium sulfate premix 20 GM/500 ML BAG IV ×2 (02:25→12:29)
[2020-09-28] MEDS: dextrose 5%-lactated ringers 1,000 ML 75 ML IV (06:13)
[2020-09-28] MEDS: betamethasone susp 6 mg/mL 5 mL 12 MG IM (16:42)
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
--- NOTE | 2020-10-01 19:02 | PC.RESP ---
SMOKING CESSATION INFORMATION SENT TO PATIENT.
== END 2020-09-28 20:20 | disposition home or self-care (01) | DRG 833 ==
LOC: OPOB 16:04 → OBGYN 16:04
PROVIDERS: Admitting Provider Family Medicine; PCP Family Medicine; Visit Provider Family Medicine
DX: O60.03 Preterm labor without delivery, third trimester (principal); O26.893 Other specified pregnancy related conditions, third trimester; N89.8 Other specified noninflammatory disorders of vagina; Z3A.29 29 weeks gestation of pregnancy
CPT/HCPCS: 36415; 51702; 59025; 76805; 76817; 80306; 81001; 83986; 85025; 96372; 99211; J0702; J3105; J3475

== ENCOUNTER 2020-11-01 12:55 | Outpatient (CLI) | payer MEDICAID, SELFPAY ==
[2020-11-01] VITALS (12 sets, daily range): BP systolic 107–127; BP diastolic 56–71; PULSE 106–141; TEMP 36.6; O2SAT 97–98; BMI 27.4
[2020-11-01] MEDS: terbutaline 1 mg/mL INJ 0.25 MG SUBCUT (13:40)
[2020-11-01 13:53] LABS: Bilirubin Urine Neg (Negative); Blood Urine Neg (Negative); Glucose Urine UA Norm (Normal); Ketones Urine Negative (Negative); Leukocyte Esterase Urine Trace (Negative); Nitrate Urine Negative (Negative); Protein Urine Neg (Negative); Specific Gravity, Urine 1.005 (1.005-1.030); Squamous Epithelial Cell Urine 0-4 /hpf (0-5); Urine Appearance Clear (CLEAR); Urine Color Yellow (Yellow); Urobilinogen Urine Neg (Negative); WBC Urine 0-4 /hpf (0-5); pH Urine 7 (5-7)
== END 2020-11-01 14:55 | disposition home or self-care (01) ==
LOC: OPOB 13:01 → OBGYN 13:02
PROVIDERS: PCP Family Medicine; Visit Provider Family Medicine
DX: O26.899 Other specified pregnancy related conditions, unspecified trimester (principal); Z3A.00 Weeks of gestation of pregnancy not specified; R52 Pain, unspecified
CPT/HCPCS: 59025; 81001; 96372; 99211; J3105

== ENCOUNTER 2020-11-22 19:30 | Outpatient (CLI) | payer MEDICAID, SELFPAY ==
[2020-11-22] VITALS (17 sets, daily range): BP systolic 107–111; BP diastolic 62–72; PULSE 85–114; RESP 15–16; TEMP 36.9; O2SAT 89–99; BMI 27.1
[2020-11-23 00:17] LABS: Nitrazine Paper, PH Negative
== END 2020-11-22 21:40 | disposition home or self-care (01) ==
LOC: OPOB 19:30 → OBGYN 19:31
PROVIDERS: PCP Family Medicine; Visit Provider Family Medicine
DX: O26.899 Other specified pregnancy related conditions, unspecified trimester (principal); Z3A.00 Weeks of gestation of pregnancy not specified; N89.8 Other specified noninflammatory disorders of vagina
CPT/HCPCS: 59025; 83986; 99211

== ENCOUNTER 2020-11-29 02:54 | Inpatient (IN) | payer MEDICAID, SELFPAY ==
[2020-11-29] VITALS (91 sets, daily range): BP systolic 81–174; BP diastolic 50–105; PULSE 60–171; RESP 16–18; TEMP 36.1–36.8; O2SAT 97–100; BMI 28.8
[2020-11-29 03:08] LABS: Basophils % 0.2 %; Eosinophils # 0.1 10^3/uL (0.0-0.8); Eosinophils % 0.8 %; Hematocrit 35.3 % (37.0-47.0); Hemoglobin 11.5 g/dL (11.5-15.3); Lymphocytes # 2.8 10^3/uL (0.8-4.8); Lymphocytes % 23.2 %; Mean Corpuscular HGB Conc 32.6 g/dL (30.0-36.0); Mean Corpuscular Hemoglobin 27.4 pg (28.0-34.0); Mean Platelet Volume 9.5 fL (7.4-10.4); Monocytes # 0.8 10^3/uL (0.2-0.9); Monocytes % 6.2 %; Neutrophils # 8.29 10^3/uL (1.8-7.7); Neutrophils % 69.1 %; Nucleated Red Blood Cells % 0 %; Platelet Count 275 10^3/cmm (130-400); Red Cell Distribution Width 13.1 % (12.1-15.1)
[2020-11-29] MEDS: oxytocin 30 UNIT/500 ML BAG IV (05:00)
[2020-11-29] MEDS: dextrose 5%-lactated ringers 1,000 ML 125 ML IV ×3 (05:00→14:59)
[2020-11-29 06:06] LABS: Amphetamines Screen Urine Negative (Negative); Barbiturates Screen Urine Negative (Negative); Benzodiazepines Screen Urine Negative (Negative); Cocaine Screen Urine Negative (Negative); Opiate Screen Urine Negative (Negative); PCP Screen Urine Negative (Negative); THC Screen Urine Negative (Negative)
[2020-11-29] MEDS: fentaNYL 50 mcg/mL INJ 2mL IVP (09:14)
[2020-11-29] MEDS: lactated ringers 1,000 ML 999 ML IV ×2 (09:30→10:34)
--- NOTE | 2020-11-29 11:10 | P.ANESASSM_ITS ---
Pre-Anesthetic Assessment Pre-Anesthetic Assessment: Height/Weight: Height 1.63 m Weight 76.204 kg Temp Pulse Resp BP Pulse Ox 97.0 F L 69 17 97/56 100 11/29/20 11:05 11/29/20 11:07 11/29/20 09:14 11/29/20 11:03 11/29/20 11:07 Was Beta Tushar taken within 24 hours: N/A Was Clonidine taken within 24 hours: N/A Social: Social History: No alcohol and No tobacco Exam: Pre-Anes Outpt Exam: alert, oriented x 3, clear to auscultation bilaterally and regular rate & rhythm Airway: Submandibular: WNL Cervical ROM: WNL MP: 2 Dentition: Full History/ROS: No significant history except as noted Anesthetic Plan: ASA status: 2 Anesthesia: Regional (specify below) (Labor epidural) Risk of > 500 ml blood loss (7ml/kg in children): No Meds/Allergies Current Medications: Current Medications Generic Name Dose Route Start Last Admin Trade Name Freq PRN Reason Stop Dose Admin Fentanyl 25 - 100 mcg 11/29/20 02:46 11/29/20 09:14 Fentanyl 50 Mcg/ Ml Inj 2ml IVP 25 mcg Q1H PRN Administration SEVERE PAIN Dextrose/Lactated Ringer's 1,000 mls @ 125 m ls/hr 11/29/20 02:46 11/29/20 05:00 Dextrose 5%-Lact ated Ringers IV 125 mls/hr .Q8H PRN Administration labor Oxytocin 30 unit in 500 ml s @ 1 mls/hr 11/29/20 04:45 11/29/20 07:45 Pitocin IV 13 milliunit/min .Q24H STEPHAN 13 mls/hr Titration Protocol 1 MILLIUNIT/MIN Ropivacaine 200 mg in 100 mls @ 13 mls/hr 11/29/20 09:15 11/29/20 10:34 Naropin Premix EPIDURAL 13 mls/hr .Q7H42M STEPHAN Administration Lactated Ringer's 1,000 mls @ 999 m ls/hr 11/29/20 09:12 11/29/20 10:34 Lactated Ringers IV 999 mls/hr .Q1H1M PRN Administration See label comment s PFSH Anesthesia PFSH: Social History (Reviewed 09/03/20 @ 12:20 by HELDER Nash Smoking and tobacco status: current every day smoker cigarettes Quit status (tobacco): not considering quitting Second hand smoke exposure: Yes Alcohol intake: never Desire information about alcohol rehabilitation?: No Desire information about substance/drug rehabilitation?: No Female Reproductive History: Date of last menstrual period: 02/23/20 : 1 Data Anesthesia CBC & Chem 7: 11/29/20 02:30 Other Labs: Laboratory Results - last 48 hr 11/29/20 11/29/20 02:30 05:40 WBC 12.0 H RBC 4.20 Hgb 11.5 Hct 35.3 L MCV 84.0 MCH 27.4 L MCHC 32.6 RDW 13.1 Plt Count 275 MPV 9.5 Neut % (Auto) 69.1 Lymph % (Auto) 23.2 [place] % (Auto) 6.2 Eos % (Auto) 0.8 Baso % (Auto) 0.2 Neut # (Auto) 8.29 H Lymph # (Auto) 2.8 [place] # (Auto) 0.8 Eos # (Auto) 0.1 Baso # (Auto) 0.0 Nucleated RBC % (auto) 0 Nucleated RBCs # 0.0 Urine Opiates Screen Negative Ur Barbiturates Screen Negative Ur Phencyclidine Scrn Negative Ur Amphetamines Screen Negative U Benzodiazepines Scrn Negative Urine Cocaine Screen Negative U Marijuana (THC) Screen Negative Cardiac Studies: No Data to Display
--- NOTE | 2020-11-29 11:11 | ANES.PROC ---
Anesthesia Procedures Procedure/Date: 11/29/20 Epidural: Time Out Performed: Yes Consents Signed: Procedure Consent Consent: requested by attending/covering physician, from patient, risks and benefits reviewed and patient agrees to proceed Lumbar Level: L3-L4 Epidural position: sitting Epidural procedure: sterile prep of area, 1% lidocaine to numb the area, 18 g needle, neg for paresthesia, test dose given, 1.5% xylocaine 1:200k epi, placed PCEA, no systemic response, sterile dressing applied and 0.2% Ropiavacaine @ mls/hr (13) Additional Comments: DILIA at 5cm, cath at 10cm, bolused 5mls of 2% lido
[2020-11-29] MEDS: ondansetron 2 mg/ML SDV 2 mL 4 MG IVP (14:22)
--- NOTE | 2020-11-29 16:49 | P.PCNOB_ITS ---
Delivery Note: Date of delivery: November 29, 2020 Delivery: This is a 20-year-old G1, P0 at 38 weeks 4 days gestation who presented to labor and delivery with spontaneous rupture of membranes. On presentation to labor and delivery she was grossly ruptured. She was not holly regularly and did not make change on her own so her labor was augmented using Pitocin. She received an epidural for pain management. She had a normal spontaneous vaginal delivery of a viable female infant weight 2770 g, 6 pounds 2 ounces Apgars 8 and 9 over an intact perineum. The infant was suctioned at delivery and placed on the mother's chest. The cord was clamped and cut. The placenta was delivered grossly intact and normal to inspection. There was a first-degree right labial laceration that was sutured using 3-0 chromic. Mother and infant were doing well after delivery. Estimated blood loss 200 mL. A&P Assessment and plan (1) (normal spontaneous vaginal delivery): Routine care Status: Acute Coding Level of Care Code Acute Geophysical Support Specialist for Chg Fwd Diagnoses (normal spontaneous vaginal delivery) O80
--- NOTE | 2020-11-29 16:52 | PM.OPHPUD ---
Labor & Delivery H&P Update Date of Procedure: November 29, 2020 Date H&P Performed: 11/29/20 Admission Diagnosis: Related Problem List Diagnoses (1) (normal spontaneous vaginal delivery):
[2020-11-29] MEDS: ibuprofen 800 mg tablet PO (20:31)
[2020-11-29] MEDS: TRAMadol 50 mg Tablet PO (21:19)
[2020-11-30 01:03] VITALS: BP 110/68; PULSE 83
[2020-11-30 05:39] LABS: Hematocrit 30.1 % (37.0-47.0); Hemoglobin 9.7 g/dL (11.5-15.3); Mean Corpuscular HGB Conc 32.2 g/dL (30.0-36.0); Mean Corpuscular Hemoglobin 27.6 pg (28.0-34.0); Mean Corpuscular Volume 85.8 fl (81-99); Mean Platelet Volume 9.9 fL (7.4-10.4); Platelet Count 225 10^3/cmm (130-400); Red Blood Count 3.51 10^6/uL (4.1-5.3); Red Cell Distribution Width 13.2 % (12.1-15.1); White Blood Count 15.2 10^3/uL (4.0-10.0)
--- NOTE | 2020-11-30 07:25 | ANE.PACU2 ---
Inpatient post-anesthesia follow up: Airway intact: Yes Vital signs: Temperature 97.9 F Pulse Rate 83 Respiratory Rate 18 Blood Pressure 110/68 Pulse Oximetry 100 Oxygen Delivery Me thod Room Air Oxygen Flow Rate 10 Fraction of Inspir ed Oxygen Hydration adequate: Yes Nausea and vomiting: No Pain level: 2 Mental status: Baseline
[2020-11-30] MEDS: prenatal vitamin Capsule 1 CAP PO (09:24)
[2020-11-30] MEDS: docusate sodium 100 mg Capsule PO (09:24)
[2020-11-30] MEDS: ibuprofen 800 mg tablet PO ×2 (09:24→15:38)
[2020-11-30 09:26] VITALS: BP 121/80; PULSE 120; TEMP 36.3
[2020-11-30 09:27] VITALS: TEMP 36.3
[2020-11-30 14:45] LABS: Coronavirus Test Green County Not Detected
[2020-11-30 15:41] VITALS: BP 109/59; PULSE 93; TEMP 36.6
--- NOTE | 2020-11-30 16:08 | PM.OBGYDC ---
Discharge Providers COMMISSIONED SALES ASSOCIATE Date of Admission: 11/29/20 02:54 Date of Discharge: 11/30/20 Attending Provider at Admission: Bria Amanda MD Attending Provider at Discharge: Bria Amanda MD Primary Care Provider: Bria Amanda MD Diagnoses at Discharge Discharge Diagnosis (1) (normal spontaneous vaginal delivery): Status: Acute Reason for Visit Reason for Visit: possible [facility] Hospital Course Hospital Course This is a 20-year-old G1 now P1 who was admitted for spontaneous rupture of membranes. She had a normal spontaneous vaginal delivery of a viable female . Mother and infant did well after delivery. On day #1 she was ambulating, tolerating a regular diet, had no pain and minimal vaginal bleeding. She was requesting discharge home. Information Peripartum Data: Delivery Method: Vaginal Physical Exam Narrative: EXAM NARRATIVE: Alert and oriented, no acute distress. Lungs clear to auscultation bilaterally, heart regular rate and rhythm no murmurs, abdomen soft nontender, fundus is firm and nontender, no calf tenderness, no edema Urinary Catheter Management^: Webb: Cath Placed During This Visit: yes Urinary Catheter Date of Insertion: 11/29/20 Urinary Catheter Time of Insertion: 11:02 Discharge Data Data Completed and Pending: Labs from last 24 hours 11/30/20 11/29/20 04:05 08:45 WBC 15.2 H RBC 3.51 L Hgb 9.7 L Hct 30.1 L MCV 85.8 MCH 27.6 L MCHC 32.2 RDW 13.2 Plt Count 225 MPV 9.9 Nasal/Oral COVID-1 9 PCR Not detected Vitals: Last Vital Signs Temp 97.9 F 11/30/20 15:41 Pulse 93 11/30/20 15:41 Resp 18 11/29/20 17:24 BP 109/59 11/30/20 15:41 Pulse Ox 100 11/29/20 11:07 Discharge Plan Discharge Patient Disposition: Home Condition: Stable Prescriptions: No Action No Known Home Medications RF: 0 Discharge Orders: Discharge Order (Routine); Ordered 11/30/20 Ordered By: Bria Amanda Referrals: Bria Amanda MD [Primary Care Provider] - 1 month Discharge Diet: Usual diet Discharge Activity: Limit activity as instructed Patient Instructions: Depression (GEN), Pre-eclampsia and Eclampsia (DC), Bleeding (DC), OB Discharge Report, OB Food/Drug Interaction Guide, Opioid Safety, OB Home Care, OB Proud Parent Packet, OB Vaginal Deliveries Discharge Attestations COMMISSIONED SALES ASSOCIATE Time Spent in Discharge Care*: less than 30 min Coding Level of Care Code Acute Pump Assembler for Chg Fwd Diagnoses (normal spontaneous vaginal delivery) O80
--- NOTE | 2020-11-30 16:13 | PC.RESP ---
SMOKING CESSATION INFORMATION SENT TO PATIENT.
[2020-11-30 17:27] VITALS: BP 132/80; PULSE 99; TEMP 37.1
[2020-11-30] MEDS: measles,mumps,rubella pf Vial (w/diluent) 0.5 ML SUBCUT (17:55)
[2020-11-30 18:00] VITALS: BP 132/80; PULSE 99; RESP 16; TEMP 37.1
== END 2020-11-30 18:00 | disposition home or self-care (01) | DRG 807 ==
LOC: OPOB 06:27 → OBGYN 06:27
PROVIDERS: Admitting Provider Family Medicine; PCP Family Medicine; Visit Provider Family Medicine
DX: O99.334 Smoking (tobacco) complicating childbirth (principal); Z37.0 Single live birth; Z3A.38 38 weeks gestation of pregnancy; F17.210 Nicotine dependence, cigarettes, uncomplicated; O70.0 First degree perineal laceration during delivery; Z23 Encounter for immunization
CPT/HCPCS: 36415; 51702; 59025; 59409; 80306; 85025; 85027; 87635; 90707; 96372; 96374; 98960; 99211; J2405; J2795; J3010

== ENCOUNTER 2021-02-16 11:12 | Emergency (ER) | payer MEDICAID, SELFPAY ==
[2021-02-16 11:18] VITALS: BP 132/87; PULSE 89; RESP 16; TEMP 36.9; O2SAT 99
[2021-02-16 11:50] LABS: Basophils # 0.1 10^3/uL (0.0-0.1); Basophils % 1.1 %; Eosinophils # 0.4 10^3/uL (0.0-0.8); Eosinophils % 4.8 %; Hematocrit 42.7 % (37.0-47.0); Hemoglobin 13.2 g/dL (11.5-15.3); Lymphocytes # 2.1 10^3/uL (0.8-4.8); Lymphocytes % 25.6 %; Mean Corpuscular HGB Conc 30.9 g/dL (30.0-36.0); Mean Corpuscular Hemoglobin 26.3 pg (28.0-34.0); Mean Corpuscular Volume 85.1 fl (81-99); Mean Platelet Volume 8.7 fL (7.4-10.4); Monocytes # 0.6 10^3/uL (0.2-0.9); Monocytes % 7.6 %; Neutrophils # 5.01 10^3/uL (1.8-7.7); Neutrophils % 60.8 %; Nucleated Red Blood Cells % 0 %; Platelet Count 379 10^3/cmm (130-400); Red Blood Count 5.02 10^6/uL (4.1-5.3); Red Cell Distribution Width 14.2 % (12.1-15.1); White Blood Count 8.3 10^3/uL (4.0-10.0)
--- NOTE | 2021-02-16 12:00 | W.ED.NAVMDI ---
Documented by User: Deepika Gonzalez PA-C 02/16/21 12:42 HPI - Nausea/Vomiting/Diarrhea General: Chief complaint: Nausea/Vomiting/Diarrhea Stated complaint: VOMITED BLOOD THIS AM,LOW BACK PAIN,DARK URINE Time Seen by Provider: 02/16/21 11:34 Source: patient Mode of arrival: ambulatory Limitations: no limitations History of Present Illness: HPI Narrative: 21-year-old female presents to the ER today for one episode of vomiting with a small amount of blood, low back pain, and dark urine. Patient reports she felt fine up until this morning when she did vomit one time. She reports no nausea currently. She reports low back started aching after vomiting and she knows her urine was very dark. Denies any odor with the urine denies any pain with urination. Patient reports some rib pain but thinks that is from sleeping wrong. Patient is 8 weeks and reports her bleeding stopped about 2 weeks ago. Patient reports she is sexually active and has not used protection at this time. Patient is not currently on control. MD elicited complaint: nausea, vomiting and other (low back apin) Onset (ago): hour(s) Description of vomiting: bloody (very small amount) Associated nausea: Yes Associated symtoms: Reports nausea and other (low back pain and dark urine); Denies chest pain, dizziness, dysuria, headache(s) or palpitations Review of Systems General: Reports: 10 or more systems reviewed and unremarkable except in HPI and below Const: Denies: fever(s), chills or body aches ENMT: Denies: throat pain, nasal discharge or nasal congestion Card: Denies: chest pain or palpitations Resp: Denies: dyspnea, productive cough or wheezing GI: Reports: nausea and vomiting; Denies: abdominal pain, diarrhea or constipation : Reports: other (dark appearing urine, low back pain); Denies: flank pain, difficulty voiding, dysuria, urinary frequency, urinary urgency or urinary hesitancy Musc: Reports: back pain; Denies: neck pain Skin/Breast: Denies: rash or pruritus Neuro: Denies: headache(s) or dizziness PFS ED PFSH: Social History Smoking and tobacco status: current every day smoker cigarettes Quit status (tobacco): not considering quitting Second hand smoke exposure: Yes Alcohol intake: never Desire information about alcohol rehabilitation?: No Desire information about substance/drug rehabilitation?: No Female Reproductive History: Date of last menstrual period: 02/23/20 Physical Exam Const: COMMON NORMALS: no acute distress, average body habitus and patient oriented x3 GENERAL APPEARANCE: cooperative and comfortable HENMT: COMMON NORMALS: normocephalic, external ears normal and Normal external nose present HEAD & SCALP: normocephalic NOSE: Normal external nose present EXTERNAL EAR: Yes external ears normal Eye: COMMON NORMALS: conjunctivae normal GENERAL EYE: appearance normal, both eyes and all related structures CONJUNCTIVA: Yes conjunctivae normal Resp: COMMON NORMALS: normal respiratory effort, No retractions and clear to auscultation bilaterally EFFORT & INSPECTION: Yes able to speak in complete sentences AUSCULTATION: clear to auscultation bilaterally, no rales, no rhonchi and no wheezes Cardio: COMMON NORMALS: regular rate, regular rhythm and No murmurs present (Cardio) RATE: regular rate RHYTHM: regular rhythm GI: COMMON NORMALS: Normal to inspection, nondistended, normoactive bowel sounds present, Soft to palpation and non-tender PALPATION: Yes Soft to palpation : COMMON NORMALS: Yes no CVA tenderness BLADDER/KIDNEY EXAM: Yes no CVA tenderness Back/Pelvis: COMMON NORMALS: no CVA tenderness LUMBAR SPINE/LOWER BACK: Yes pain with ROM (mild), No lumbar spinal tenderness, Yes paraspinal muscle tenderness and No paraspinal muscle spasm Extremity: COMMON NORMALS: normal to inspection and full ROM Neuro: COMMON NORMALS: patient oriented x3, moves all extremities, no sensory deficits noted and gait normal Psych: COMMON NORMALS: mental status grossly normal, Normal thought process present, cooperative and normal affect THOUGHT PROCESS: Normal thought process present Skin: COMMON NORMALS: no rashes or lesions noted and no wounds GENERAL SKIN EXAM: no rashes or lesions noted Course Vital Signs: Vital signs: Vital Signs Temperature 98.4 F 02/16/21 11:18 Pulse Rate 74 02/16/21 12:58 Respiratory Rate 15 02/16/21 12:58 Blood Pressure 111/73 02/16/21 12:58 Pulse Oximetry 99 02/16/21 12:58 MDM - Nausea/Vomiting/Diarrhea MDM Narrative: Medical decision making narrative: 21-year-old female presents to the ER today for 1 episode of vomiting with a small amount of blood in addition to low back pain and dark-colored urine this a.m. Patient's exam was unremarkable. Her labs were all normal at this time other than a possible early UTI. We will go ahead and treat for UTI given the low back pain and dark urine. Patient also given Zofran for nausea. If no improvement in 3 to 5 days, follow-up with PCP. Increase fluid intake. Warm moist heat recommended for low back pain. Return to the ER with any new or worsening symptoms. Lab Data: Attestation: I reviewed the patient's lab results. Labs: Lab Results 02/16/21 02/16/21 02/16/21 11:40 11:40 11:45 WBC 8.3 10^3/uL 10^3/ uL (4.0-10.0) RBC 5.02 10^6/uL 10^6 /uL (4.1-5.3) Hgb 13.2 g/dL g/dL (11.5-15.3) Hct 42.7 % % (37.0-47.0) MCV 85.1 fl fl (81-99) MCH 26.3 pg L pg (28.0-34.0) MCHC 30.9 g/dL g/dL (30.0-36.0) RDW 14.2 % % (12.1-15.1) Plt Count 379 10^3/cmm 10^3 /cmm (130-400) MPV 8.7 fL fL (7.4-10.4) Neut % (Auto) 60.8 % % Lymph % (Auto) 25.6 % % [place] % (Auto) 7.6 % % Eos % (Auto) 4.8 % % Baso % (Auto) 1.1 % % Neut # (Auto) 5.01 10^3/uL 10^3 /uL (1.8-7.7) Lymph # (Auto) 2.1 10^3/uL 10^3/ uL (0.8-4.8) [place] # (Auto) 0.6 10^3/uL 10^3/ uL (0.2-0.9) Eos # (Auto) 0.4 10^3/uL 10^3/ uL (0.0-0.8) Baso # (Auto) 0.1 10^3/uL 10^3/ uL (0.0-0.1) Nucleated RBC % (a uto) 0 % % Nucleated RBCs # 0.0 /100WBC /100W BC Sodium 138 mmol/L mmol/L (136-145) Potassium 4.3 mmol/L mmol/L (3.5-5.1) Chloride 103 mmol/L mmol/L (98-107) Carbon Dioxide 27 mmol/L mmol/L (22-29) Anion Gap 12.3 (5-19) BUN 14 mg/dL mg/dL (6-20) Creatinine 0.6 mg/dL mg/dL (0.5-0.9) GFR Calculation 125.0 mL/min mL/m in (90-130) Glucose 99 mg/dL mg/dL (65-115) Calculated Osmolal ity 287 mOsm/kg mOsm/ kg (285-295) Calcium 8.7 mg/dL mg/dL (8.5-10.5) Total Bilirubin 0.4 mg/dL mg/dL (0.15-1.2) AST 13 U/L U/L (0-32) ALT 14 U/L U/L (0-33) Alkaline Phosphata se 65 IU/L IU/L (35-105) Total Protein 6.4 g/dL L g/dL (6.6-8.7) Albumin 4.4 g/dL g/dL (3.5-5.2) Globulin 2.0 g/dL g/dL (1.3-4.6) HCG, Qual Negative (Negative) Urine Color Urine Appearance Urine pH Ur Specific Gravit y Urine Protein Urine Glucose (UA) Urine Ketones Urine Blood Urine Nitrate Urine Bilirubin Urine Urobilinogen Ur Leukocyte Nancy ase Urine RBC Urine WBC Ur Squamous Epith Cells Amorphous Sediment Urine Bacteria 02/16/21 11:45 WBC RBC Hgb Hct MCV MCH MCHC RDW Plt Count MPV Neut % (Auto) Lymph % (Auto) [place] % (Auto) Eos % (Auto) Baso % (Auto) Neut # (Auto) Lymph # (Auto) [place] # (Auto) Eos # (Auto) Baso # (Auto) Nucleated RBC % (a uto) Nucleated RBCs # Sodium Potassium Chloride Carbon Dioxide Anion Gap BUN Creatinine GFR Calculation Glucose Calculated Osmolal ity Calcium Total Bilirubin AST ALT Alkaline Phosphata se Total Protein Albumin Globulin HCG, Qual Urine Color Yellow (Yellow) Urine Appearance Clear (CLEAR) Urine pH 5 (5-7) Ur Specific Gravit y 1.020 (1.005-1.030) Urine Protein Neg (Negative) Urine Glucose (UA) Norm (Normal) Urine Ketones Negative (Negative) Urine Blood Neg (Negative) Urine Nitrate Negative (Negative) Urine Bilirubin Neg (Negative) Urine Urobilinogen Norm mg/dL mg/dL (Negative) Ur Leukocyte Nancy ase 1+ H (Negative) Urine RBC None /hpf /hpf (0-2) Urine WBC 5-10 /hpf H /hpf (0-5) Ur Squamous Epith Cells 5-10 /hpf H /hpf (0-5) Amorphous Sediment Not Reportable Urine Bacteria 2+ /hpf H /hpf (NONE) Discharge Plan Discharge Patient Disposition: Home Clinical Impression: UTI (urinary tract infection) Qualifiers: Urinary tract infection type: acute cystitis Hematuria presence: without hematuria Qualified Code(s): N30.00 - Acute cystitis without hematuria Nausea & vomiting Qualifiers: Vomiting type: hematemesis Qualified Code(s): K92.0 - Hematemesis Condition: Stable Discharge Orders: Discharge ED (Routine); Ordered 02/16/21 Ordered By: Deepika Gonzalez Referrals: Bria Amanda MD [Primary Care Provider] - Discharge Diet: Usual diet Discharge Activity: Resume usual activity Patient Instructions: Urinary Tract Infection in Women (DC), Opioid Safety Activity Restrictions/Additional Instructions: Take antibiotics as prescribed. Push clear fluids. Take Zofran for nausea. Follow-up with [facility] or PCP in 5 to 7 days if no improvement. Return to the ER with any new or worsening symptoms. Coding Level of Care Code ED Security Trainer for Chg Fwd Exam Comprehensive Documented by User: Zafar East MD 02/21/21 23:59 HPI - Nausea/Vomiting/Diarrhea General: Chief complaint: Nausea/Vomiting/Diarrhea Stated complaint: VOMITED BLOOD THIS AM,LOW BACK PAIN,DARK URINE Time Seen by Provider: 02/16/21 11:34 PFSH ED PFSH: Social History Smoking and tobacco status: current every day smoker cigarettes Quit status (tobacco): not considering quitting Second hand smoke exposure: Yes Alcohol intake: never Desire information about alcohol rehabilitation?: No Desire information about substance/drug rehabilitation?: No Course Vital Signs: Vital signs: Vital Signs Temperature 98.4 F 02/16/21 11:18 Pulse Rate 74 02/16/21 12:58 Respiratory Rate 15 02/16/21 12:58 Blood Pressure 111/73 02/16/21 12:58 Pulse Oximetry 99 02/16/21 12:58 MDM - Nausea/Vomiting/Diarrhea MDM Narrative: Medical decision making narrative: I have reviewed documentation. ED course/MDM pending. Zafar East MD Emergency Medicine Lab Data: Labs: Lab Results 02/16/21 02/16/21 02/16/21 11:40 11:40 11:45 WBC 8.3 10^3/uL 10^3/ uL (4.0-10.0) RBC 5.02 10^6/uL 10^6 /uL (4.1-5.3) Hgb 13.2 g/dL g/dL (11.5-15.3) Hct 42.7 % % (37.0-47.0) MCV 85.1 fl fl (81-99) MCH 26.3 pg L pg (28.0-34.0) MCHC 30.9 g/dL g/dL (30.0-36.0) RDW 14.2 % % (12.1-15.1) Plt Count 379 10^3/cmm 10^3 /cmm (130-400) MPV 8.7 fL fL (7.4-10.4) Neut % (Auto) 60.8 % % Lymph % (Auto) 25.6 % % [place] % (Auto) 7.6 % % Eos % (Auto) 4.8 % % Baso % (Auto) 1.1 % % Neut # (Auto) 5.01 10^3/uL 10^3 /uL (1.8-7.7) Lymph # (Auto) 2.1 10^3/uL 10^3/ uL (0.8-4.8) [place] # (Auto) 0.6 10^3/uL 10^3/ uL (0.2-0.9) Eos # (Auto) 0.4 10^3/uL 10^3/ uL (0.0-0.8) Baso # (Auto) 0.1 10^3/uL 10^3/ uL (0.0-0.1) Nucleated RBC % (a uto) 0 % % Nucleated RBCs # 0.0 /100WBC /100W BC Sodium 138 mmol/L mmol/L (136-145) Potassium 4.3 mmol/L mmol/L (3.5-5.1) Chloride 103 mmol/L mmol/L (98-107) Carbon Dioxide 27 mmol/L mmol/L (22-29) Anion Gap 12.3 (5-19) BUN 14 mg/dL mg/dL (6-20) Creatinine 0.6 mg/dL mg/dL (0.5-0.9) GFR Calculation 125.0 mL/min mL/m in (90-130) Glucose 99 mg/dL mg/dL (65-115) Calculated Osmolal ity 287 mOsm/kg mOsm/ kg (285-295) Calcium 8.7 mg/dL mg/dL (8.5-10.5) Total Bilirubin 0.4 mg/dL mg/dL (0.15-1.2) AST 13 U/L U/L (0-32) ALT 14 U/L U/L (0-33) Alkaline Phosphata se 65 IU/L IU/L (35-105) Total Protein 6.4 g/dL L g/dL (6.6-8.7) Albumin 4.4 g/dL g/dL (3.5-5.2) Globulin 2.0 g/dL g/dL (1.3-4.6) HCG, Qual Negative (Negative) Urine Color Urine Appearance Urine pH Ur Specific Gravit y Urine Protein Urine Glucose (UA) Urine Ketones Urine Blood Urine Nitrate Urine Bilirubin Urine Urobilinogen Ur Leukocyte Nancy ase Urine RBC Urine WBC Ur Squamous Epith Cells Amorphous Sediment Urine Bacteria 02/16/21 11:45 WBC RBC Hgb Hct MCV MCH MCHC RDW Plt Count MPV Neut % (Auto) Lymph % (Auto) [place] % (Auto) Eos % (Auto) Baso % (Auto) Neut # (Auto) Lymph # (Auto) [place] # (Auto) Eos # (Auto) Baso # (Auto) Nucleated RBC % (a uto) Nucleated RBCs # Sodium Potassium Chloride Carbon Dioxide Anion Gap BUN Creatinine GFR Calculation Glucose Calculated Osmolal ity Calcium Total Bilirubin AST ALT Alkaline Phosphata se Total Protein Albumin Globulin HCG, Qual Urine Color Yellow (Yellow) Urine Appearance Clear (CLEAR) Urine pH 5 (5-7) Ur Specific Gravit y 1.020 (1.005-1.030) Urine Protein Neg (Negative) Urine Glucose (UA) Norm (Normal) Urine Ketones Negative (Negative) Urine Blood Neg (Negative) Urine Nitrate Negative (Negative) Urine Bilirubin Neg (Negative) Urine Urobilinogen Norm mg/dL mg/dL (Negative) Ur Leukocyte Nancy ase 1+ H (Negative) Urine RBC None /hpf /hpf (0-2) Urine WBC 5-10 /hpf H /hpf (0-5) Ur Squamous Epith Cells 5-10 /hpf H /hpf (0-5) Amorphous Sediment Not Reportable Urine Bacteria 2+ /hpf H /hpf (NONE) Discharge Plan Discharge Patient Disposition: Home Clinical Impression: UTI (urinary tract infection) Qualifiers: Urinary tract infection type: acute cystitis Hematuria presence: without hematuria Qualified Code(s): N30.00 - Acute cystitis without hematuria Nausea & vomiting Qualifiers: Vomiting type: hematemesis Qualified Code(s): K92.0 - Hematemesis Condition: Stable Discharge Orders: Discharge ED (Routine); Ordered 02/16/21 Ordered By: Deepika Gonzalez Referrals: Bria Amanda MD [Primary Care Provider] - Discharge Diet: Usual diet Discharge Activity: Resume usual activity Patient Instructions: Urinary Tract Infection in Women (DC), Opioid Safety Activity Restrictions/Additional Instructions: Take antibiotics as prescribed. Push clear fluids. Take Zofran for nausea. Follow-up with [facility] or PCP in 5 to 7 days if no improvement. Return to the ER with any new or worsening symptoms. Coding Level of Care Code ED Security Trainer for [employer]ag Fwd Exam Comprehensive
[2021-02-16 12:02] LABS: HCG Qualitative Urine. Negative (Negative)
[2021-02-16 12:07] LABS: Add Urine Microscopic? YES; Bilirubin Urine Neg (Negative); Blood Urine Neg (Negative); Glucose Urine UA Norm (Normal); Ketones Urine Negative (Negative); Leukocyte Esterase Urine 1+ (Negative); Nitrate Urine Negative (Negative); Protein Urine Neg (Negative); Urine Appearance Clear (CLEAR); Urine Color Yellow (Yellow); Urobilinogen Urine Norm (Negative); pH Urine 5 (5-7)
[2021-02-16 12:09] LABS: Alanine Aminotransferase 14 U/L (0-33); Albumin Level 4.4 g/dL (3.5-5.2); Alkaline Phosphatase 65 IU/L (35-105); Anion Gap 12.3 (5-19); Aspartate Amino Transferase 13 U/L (0-32); Blood Urea Nitrogen 14 mg/dL (6-20); Calcium 8.7 mg/dL (8.5-10.5); Carbon Dioxide 27 mmol/L (22-29); Chloride 103 mmol/L (98-107); Glucose 99 mg/dL (65-115); Osmolality Calculated 287 mOsm/kg (285-295); Potassium 4.3 mmol/L (3.5-5.1); Sodium 138 mmol/L (136-145); Total Bilirubin 0.4 mg/dL (0.15-1.2); Total Protein 6.4 g/dL (6.6-8.7)
[2021-02-16 12:11] LABS: Add Urine Culture? Yes; Bacteria Urine 2+ /hpf
[2021-02-16 12:58] VITALS: BP 111/73; PULSE 74; RESP 15; O2SAT 99
== END 2021-02-16 12:59 | disposition home or self-care (01) ==
PROVIDERS: Emergency Provider Physician Assistant; PCP Family Medicine
DX: N30.00 Acute cystitis without hematuria (principal); K92.0 Hematemesis; F17.210 Nicotine dependence, cigarettes, uncomplicated
CPT/HCPCS: 80053; 81001; 81025; 85025; 87086; 99283

== ENCOUNTER → 2021-03-01 10:38 | Outpatient (BNVA) | payer MEDICAID, SELFPAY | PROVIDERS: PCP Family Medicine; Visit Provider Nurse Practitioner Family | DX: J06.9 Acute upper respiratory infection, unspecified (principal) | CPT/HCPCS: 87071; 87635; 87880 ==

== ENCOUNTER → 2021-05-11 11:06 | Outpatient (BNVA) | payer MEDICAID, SELFPAY | PROVIDERS: PCP Family Medicine; Visit Provider Nurse Practitioner | DX: J32.9 Chronic sinusitis, unspecified (principal) | CPT/HCPCS: 87400 ==

== ENCOUNTER → 2021-11-23 12:59 | Outpatient (BNVA) | payer MEDICAID, SELFPAY | PROVIDERS: PCP Family Medicine; Visit Provider Nurse Practitioner Family | DX: Z20.822 Contact with and (suspected) exposure to COVID-19 (principal); R21 Rash and other nonspecific skin eruption | CPT/HCPCS: 87426 ==

== ENCOUNTER → 2023-02-09 13:51 | Outpatient (BNVA) | payer MEDICAID, SELFPAY | PROVIDERS: PCP Family Medicine; Visit Provider Nurse Practitioner Family | DX: N89.8 Other specified noninflammatory disorders of vagina (principal); B37.9 Candidiasis, unspecified; J32.0 Chronic maxillary sinusitis; J06.9 Acute upper respiratory infection, unspecified; N39.0 Urinary tract infection, site not specified | CPT/HCPCS: 80053 ==

== ENCOUNTER → 2023-02-19 10:02 | Outpatient (BNVA) | payer SELFPAY | PROVIDERS: PCP Family Medicine; Referring Provider Nurse Practitioner Family; Visit Provider Nurse Practitioner Women's Health | DX: Z30.9 Encounter for contraceptive management, unspecified (principal); Z12.4 Encounter for screening for malignant neoplasm of cervix | CPT/HCPCS: 81025; 88175 ==

== ENCOUNTER → 2023-04-29 11:30 | Outpatient (BNVA) | payer MEDICAID, SELFPAY | PROVIDERS: PCP Family Medicine; Visit Provider Nurse Practitioner Women's Health | DX: Z30.018 Encounter for initial prescription of other contraceptives (principal) | CPT/HCPCS: 83036; 83525; 84132; 84403; 84439; 84443; 84481 ==

== ENCOUNTER → 2023-05-27 08:53 | Outpatient (BNVA) | payer MEDICAID, SELFPAY | PROVIDERS: PCP Family Medicine; Visit Provider Nurse Practitioner Women's Health | DX: Z30.018 Encounter for initial prescription of other contraceptives (principal) | CPT/HCPCS: 76830; 84132 ==

== ENCOUNTER → 2023-08-26 13:15 | Outpatient (BNVA) | payer MEDICAID, SELFPAY | PROVIDERS: PCP Family Medicine; Visit Provider Nurse Practitioner Women's Health | DX: Z79.899 Other long term (current) drug therapy (principal) | CPT/HCPCS: 84132 ==